=== PATIENT | female | born 1955 ===

== ENCOUNTER 2018-11-29 09:30 | Outpatient (CLI) | payer MEDICAID | END 2018-11-29 09:31 | disposition home or self-care (01) | LOC: C.LAB 09:30 | DX: M06.9 Rheumatoid arthritis, unspecified (principal); E55.9 Vitamin D deficiency, unspecified; E78.5 Hyperlipidemia, unspecified ==

== ENCOUNTER 2018-12-12 08:56 | Outpatient (CLI) | payer MEDICAID | END 2018-12-12 08:57 | disposition home or self-care (01) | LOC: C.LAB 08:56 | DX: E78.2 Mixed hyperlipidemia (principal); R73.01 Impaired fasting glucose; E55.9 Vitamin D deficiency, unspecified; E03.9 Hypothyroidism, unspecified ==